=== PATIENT | male | born 1965 | race Caucasian/White ===

== ENCOUNTER 2017-11-06 00:59 | Emergency (ER) | payer SELFPAY, OTHER ==
[2017-11-06] MEDS: DIPHTH/TET/ACEL PERTUSS (ADULT) 0.5 ML VIAL IM* (01:54)
[2017-11-06] MEDS: LIDOCAINE 1% (MDV) 10 ML INJ INFIL (01:55)
== END 2017-11-06 03:20 | disposition home or self-care (01) ==
LOC: FTE 00:59
DX: S01.312A Laceration without foreign body of left ear, initial encounter (principal); M94.9 Disorder of cartilage, unspecified; W18.09XA Striking against other object with subsequent fall, initial encounter; Y92.9 Unspecified place or not applicable; Z23 Encounter for immunization
CPT/HCPCS: 12011; 90471; 99284-25

== ENCOUNTER 2017-11-07 14:47 | Emergency (ER) | payer MEDICAID, OTHER | END 2017-11-07 16:40 | disposition home or self-care (01) | LOC: FTE 14:47 | DX: Z48.01 Encounter for change or removal of surgical wound dressing (principal) | CPT/HCPCS: 99281; Z7502 ==